=== PATIENT | male | born 2000 | race African-American/Black ===

== ENCOUNTER → 2025-06-12 | Outpatient (CLI) | payer OTHER | LOC: M CARPUL 10:39 | DX: R07.9 Chest pain, unspecified (principal) ==

== ENCOUNTER → 2025-06-14 | Outpatient (CLI) | payer OTHER ==
[~2025-06-14] MED LIST: METHACHOLINE KIT (6 VIAL.NEB PREMIX) INH ONE
== END ==
LOC: M CARPUL 11:00
DX: R07.9 Chest pain, unspecified (principal)

== ENCOUNTER → 2025-08-03 | Outpatient (CLI) | payer OTHER | LOC: M CARPUL 14:50 | DX: R07.9 Chest pain, unspecified (principal) ==